=== PATIENT | female | born 1990 | race Caucasian/White ===

== ENCOUNTER 2016-05-09 14:46 | Emergency (ER) | payer SELFPAY ==
[~2016-05-09] VITALS: Ht 162.6 cm; Wt 69.0 kg
[2016-05-09 14:57] VITALS: BP 134/103; PULSE 99; RESP 16; TEMP 98.7; O2SAT 99
[2016-05-09] MEDS ORDERED: ADDE30TA PO (18:15)
[2016-05-09] MEDS ORDERED: XANA1TAB2 PO (18:15)
[2016-05-09] MEDS ORDERED: BACT800T5 PO (18:17)
--- NOTE | 2016-05-09 18:17 | PD ---
HPI Chief Complaint: Skin Problem Time Seen by Provider: 18:11 Travel History International Travel<30 days: No Contact w/Intl Traveler<30days: No Traveled to known affect area: No History of Present Illness HPI Patient comes in for evaluation of this sinus congestion and rash. Patient says the congestion has been ongoing for approximately a month and seems to be getting progressively worse. Patient states she tried [id number] medication with little to no improvement of symptoms. Patient started noticing a rash on her face approximately 3 days ago. Patient states rash gets worse overnight improves throughout the day. Rash is pruritic like in nature. Denies any new exposures including but not limited to soaps, lotions, fracture, detergents, or foods. Denies any fevers, nausea, vomiting, shortness of breath , chest pain, or . Patient states she is concerned she may have fifth' s disease as her son was recently diagnosed approximately 2-3 weeks ago. PFSH Past Medical History ADHD: Yes ?: Not LMP: 2.5 WEEKS Social History Alcohol Use: No Tobacco Use: No Substance Use: No Allergies-Medications (Allergen,Severity, Reaction): Coded Allergies: No Known Allergies (Unverified , 05/09/16) Reported Meds & Prescriptions Reported Meds & Active Scripts Active Bactrim DS (Sulfamethoxazole-Trimethoprim) 800-160 Mg Tab 1 Tab PO BID Reported Xanax (Alprazolam) 1 Mg Tab 1 Mg PO Q6H PRN Adderall (Amphetamine-Dextroamphetamine) 30 Mg Tab 30 Mg PO DAILY Avoid late evening doses. Space doses at least 4 to 6 hours if more than once/day dosing. Review of Systems Except as stated in HPI: all other systems reviewed are Neg Physical Exam Narrative GENERAL: Well-developed, well nourished, in no acute distress, and non-ill appearing. SKIN: Warm and dry. Multiple acne-appearing lesions noted bilateral upper extremities and back. Face is mildly erythematous with acne-appearing lesions noted. Does not appear consistent with fifth's disease, lupus, or chickenpox. HEAD: Atraumatic. Normocephalic. EYES: Pupils equal and round. EOMI. No scleral icterus. No injection or drainage. ENT: No nasal bleeding or discharge. Mucous membranes pink and moist. Tympanic membranes are pearly ross bilaterally. Posterior pharynx erythematous without exudate. Uvula is midline. Patient reports pain to facial sinuses to palpation. NECK: Trachea midline. No cervical lymphadenopathy. Supple. No nuclear rigidity. CARDIOVASCULAR: Regular rate and rhythm. No murmur appreciated. RESPIRATORY: No accessory muscle use. No respiratory distress. Clear to auscultation. Breath sounds equal bilaterally. MUSCULOSKELETAL: No obvious deformities. No clubbing. No cyanosis. No edema. Full range of motion. NEUROLOGICAL: Awake and alert. No obvious cranial nerve deficits. Motor grossly within normal limits. Normal speech. PSYCHIATRIC: Appropriate mood and affect; insight and judgment normal. Data Data Last Documented VS Vital Signs Date Time Temp Pulse Resp B/P Pulse Ox O2 Delivery O2 Flow Rate FiO2 05/09/16 18:32 99 05/09/16 14:57 98.7 99 16 134/103 [facility] Medical Decision Making Medical Screen Exam Complete: Yes Emergency Medical Condition: Yes Differential Diagnosis Allergic reaction, sinusitis, viral syndrome, rash, fifth disease, acne vulgaris , other Narrative Course Patient looks great, non-ill appearing. The patient is tolerating fluids and is well hydrated. Appears acute sinusitis. No clinical evidence by history or evaluation to suspect meningitis and/or sepsis. There was no evidence to suggest deep abscess or cavernous sinus involvement. I discussed with the patient, diagnosis, plan of care, medications and to follow up with the patient s primary physician. The patient was instructed to return if the worsens in anyway, especially if not tolerating fluids, increased sinus pain or swelling, worsening headache, persistent fever, difficulty swallowing or breathing, or as needed. The patient agreed with plan. The patient presented with nonspecific rash. There were no blisters or bullae, target lesions, purpura or petechia, nor vesiculobullous or scarlatiniform lesions. The patient looks great and was non-ill appearing. There was no evidence to suggest scabies, cellulitis, folliculitis or abscess, Staph. Scalded Skin Syndrome, Toxic Shock, Toxic Epidermal necrolysis, Kawasakis, Measles, Rubella, cutaneous T cell lymphoma, Erythema Multiforme (minor or major ). Plan of care was discussed with the patient and the patient is to follow up with their physician. The patient agreed with plan. Patient in no obvious distress upon re-evaluation. Patient was asked if they wanted to speak to my attending, which the patient did not wish to do at this time. Any questions/concerns in reference to patient diagnosis/condition discussed and clarified prior to patient's discharge. Reinforced sheer importance of close follow up with patient's primary physician or primary care clinic. Instructed patient to return to ED immediately, if symptoms return/ worsen. Pt showed understanding of above instructions. Further instructions and recommendations were detailed in discharge paperwork. Pt ambulated without difficulty out of ED at discharge. Diagnosis Primary Impression: Sinusitis Qualified Code: J32.9 - Sinusitis, unspecified chronicity, unspecified location Additional Impression: Rash Referrals: [facility] Patient Instructions: Acute Rash (ED), General Instructions, Sinusitis (ED) Additional Instructions: Follow-up with your primary care physician 3-5 days for reevaluation. Take all medication as prescribed. Use [id number] Benadryl or Claritin or Zyrtec as needed for symptomatic relief. Return to the emergency department if symptoms get worse. Med/Other Pt SpecificInfo: Prescription(s) given Scripts Sulfamethoxazole-Trimethoprim (Bactrim DS)800-160 Mg Tab1 Tab PO BID #20 TAB Ref 0 Prov:Los Lawrence MD 05/09/16 Disposition: 01 DISCHARGE HOME Condition: Stable Reed Arreaga May 09, 2016 18:17
== END 2016-05-09 18:32 | disposition home or self-care (01) ==
LOC: PHED 14:46 → PHEFT 18:32
DX: J32.9 Chronic sinusitis, unspecified (principal)
CPT/HCPCS: 99283